=== PATIENT | female | born 1980 | race Hispanic/Latino ===

== ENCOUNTER 2021-11-01 18:53 | Emergency (ER) | payer MEDICARE ==
[~2021-11-01] VITALS: Ht 165.1 cm; Wt 127.9 kg
[2021-11-01 18:55] VITALS: BP 130/61
[2021-11-01] MEDS ORDERED: KETOROLAC 30MG VIAL (30MG/ML) IM ONE (19:30)
[2021-11-01] MEDS ORDERED: NAPR500T6 PO (21:12)
[2021-11-01] MEDS ORDERED: KETOROLAC 30MG VIAL (30MG/ML) ONE (21:26)
== END 2021-11-01 21:47 | disposition home or self-care (01) ==
LOC: EDH 18:53
DX: M25.561 Pain in right knee (principal); M79.89 Other specified soft tissue disorders; Z88.0 Allergy status to penicillin; Z79.899 Other long term (current) drug therapy; Z98.890 Other specified postprocedural states
CPT/HCPCS: 29505; 36415; 73562; 84702; 96372; 99284; J1885

== ENCOUNTER 2024-09-19 11:10 | Emergency (ER) | payer MEDICARE ==
[~2024-09-19] VITALS: Ht 165.1 cm; Wt 96.6 kg
[~2024-09-19 11:10] MED LIST: NAPR-1506 PO
[2024-09-19 12:46] LABS: BASOPHILS # (AUTO) 0.04 K/uL (0.00-0.20); BASOPHILS % (AUTO) 0.6 % (0.0-5.0); EOSINOPHILS # (AUTO) 0.26 K/uL (0.00-0.70); HEMATOCRIT 41.6 % (36-48); IMMATURE GRANULOCYTE ABSOLUTE 0.02 K/uL (0-1); LYMPHOCYTES # (AUTO) 1.8 K/uL (1.0-4.8); MEAN CORPUSCULAR HEMOGLOBIN 27.2 pg (27.0-33.0); MEAN CORPUSCULAR HGB CONC 32.5 g/dL (32.0-36.0); MEAN CORPUSCULAR VOLUME 83.9 fL (79-99); MONOCYTES # (AUTO) 0.3 K/uL (0.1-1.0); NEUTROPHILS # (AUTO) 4.1 K/uL (1.8-7.7); NEUTROPHILS % (AUTO) 63.1 % (40.0-77.0); PLATELET COUNT (AUTO) 220 K/uL (130-400); RED BLOOD CELL COUNT(AUTO) 4.96 MIL/uL (4.00-5.50); RED CELL DISTRIBUTION WIDTH 15.8 % (11.0-15.5); WHITE BLOOD COUNT (AUTO) 6.5 K/uL (4.8-10.8)
[2024-09-19 12:50] LABS: APPEARANCE,URINE CLEAR (CLEAR); BILIRUBIN,URINE NEGATIVE (NEGATIVE); COLOR,URINE LIGHT-YELLOW (YELLOW); GLUCOSE, URINE (UA) NEGATIVE (NEGATIVE); KETONES,URINE NEGATIVE (NEGATIVE); LEUKOCYTE ESTERASE ,URINE NEGATIVE Leu/uL (NEGATIVE); NITRATE,URINE NEGATIVE (NEGATIVE); OCCULT BLOOD,URINE SMALL (NEGATIVE); PH,URINE 5.5 (5.0-8.0); PROTEIN,URINE NEGATIVE (NEGATIVE); UROBILINOGEN,URINE 0.2 mg/dL (0.2-1.0)
[2024-09-19 12:57] LABS: INR <= 0.93 (0.85-1.15); PROTHROMBIN TIME 10.1 SEC (9.6-11.6)
[2024-09-19 12:58] LABS: PARTIAL THROMBOPLASTIN TIME 26.5 SEC (26.3-35.5)
[2024-09-19 13:00] LABS: ADD UA MICROSCOPIC YES
[2024-09-19 13:00] LABS: CREATININE 0.4 mg/dL (0.5-1.0); POTASSIUM 4.3 mmol/L (3.5-5.1)
[2024-09-19 13:01] LABS: MUCUS,URINE RARE LPF (None Seen); SQUAMOUS EPITHELIAL CELL,UR RARE /HPF (0-2); WBC,URINE 0-1 /HPF (0-1)
--- NOTE | 2024-09-19 14:22 | HMCIMG ---
US PELVIC NON-OB COMP REASON: dysfunctional uterine bleeding r/o uterine fibroids COMPARISON: None TECHNIQUE: Routine pelvic sonogram was performed. FINDINGS: Uterus is 8.2 x 4.6 x 4.9 cm. Endometrium is mildly prominent at 14 mm. There are no focal endometrial or myometrial masses. Ovaries appear small but otherwise unremarkable. Right ovary is 1.9 x 2.1 cm, left ovary is 2.1 x 2.1 cm. There are no adnexal masses. There is no free fluid in the cul-de-sac. IMPRESSION: 1. Normal pelvic sonogram.
--- NOTE | 2024-09-19 14:47 | ERN ---
General Chief Complaint: Vaginal Problems/Bleeding Stated Complaint: HEAVY VAGINAL BLEEDING, ABD CRMAPS Time Seen by MD: 11:29 Time Seen by Midlevel: 11:29 Source: patient History of Present Illness Initial Comments The patient is a 44-year-old female with a past medical history of anemia and recurrent urinary tract infections, and an ectopic in 2019 presenting to the emergency department with heavy vaginal bleeding with clots that started yesterday and progressively worsened today. She reports going through three tampons in the last hour. She also reports generalized body weakness and fatigue. Denies any chest pain, shortness of breath, or any other symptoms. Patient is unsure if she was but states she has been attempting to get for the last couple of weeks. Allergies: Coded Allergies: Penicillins (Unverified Allergy, Unknown, 11/01/21) Home Meds Active Scripts Naproxen (Naproxen) 500 Mg Tablet., 500 MG PO BIDPC, #15 TAB Prov:NANCYLYNETTE [employer] 11/01/21 Past Medical History Past Medical History: Anemia, UTI Past Surgical History: Other Surgical History Other: ECTOPIC IN 2019 Female( History) LMP: Aug 13, 2024 ROS Dictation CONSTITUTIONAL: Negative except for HPI HEAD/FACE: Negative except for HPI EENT: Negative except for HPI RESPIRATORY: Negative except for HPI GASTROINTESTINAL/ABDOMINAL: Negative except for HPI GENITOURINARY: Negative except for HPI MUSCULOSKELETAL: Negative except for HPI INTEGUMENTARY: Negative except for HPI NEUROLOGICAL/PSYCH: Negative except for HPI HEMATOLOGIC/LYMPHATIC: Negative except for HPI All Systems Negative, Except as noted above. 13 point review of systems assessed and all negative except for above. Physical Exam Physical Exam Dictation Vital Signs reviewed General Appearance: Alert, oriented x 3, no acute distress, well developed, nourished. Head and Face: non-traumatic. Eyes: PERRL, pink conjunctivas, eyelid no trauma, anterior chamber with arcus senilis. Ears: Pinnas intact and no signs of trauma or erythema ear canals clear and no discharge TM no erythema Nose: No discharge, no bleeding. Oropharynx: Mouth normal, tongue pink, pharynx clear,no erythema, tonsils no exudates, no abscesses noted, mucous membrane moist Neck: Supple, non-tender, no thyromegaly, no masses, no JVD, no bruits Breast:Deferred Chest:No tenderness, no crepitus, no paradoxical movement, no retractions Lungs:Clear, well-ventilated, symmetric, no rales, no wheezing, no rhonchi, no stridor, good breath sounds bilaterally Heart: Regular rate, regular rhythm, no murmur, no gallops Vascular: no peripheral edema, Abdomen: Soft, positive bowel sounds, nondistended, no guarding, nontender, no rebound, no masses no hepatomegaly, no splenomegaly, no Abreu's sign, no hernias. Rectal: Deferred Genital: Deferred Neurological: Normal speech, motor function intact, sensory function intact Musculoskeletal: Neck nontender, full range of motion, back nontender, full range of motion, Extremities: nontender, full range of motion Skin: Color pink, dry, no turgor, no rash, no lacerations, no abrasions, no contusions. Lymphatic: Deferred Results Laboratory and Microbiology Lab and Micro Result Laboratory Tests Test 09/19/24 12:19 09/19/24 12:38 Urine Color LIGHT-YELLOW (YELLOW) Urine Appearance CLEAR (CLEAR) Urine pH 5.5 (5.0-8.0) Urine Specific [place] 1.017 (1.001-1.031) Urine Protein NEGATIVE mg/dL (NEGATIVE) Urine Glucose (UA) NEGATIVE mg/dL (NEGATIVE) Urine Ketones NEGATIVE mg/dL (NEGATIVE) Urine Occult Blood SMALL (NEGATIVE) H Urine Nitrate NEGATIVE (NEGATIVE) Urine Bilirubin NEGATIVE mg/dL (NEGATIVE) Urine Urobilinogen 0.2 mg/dL (0.2-1.0) Urine Leukocyte Esterase NEGATIVE Miladys/uL Urine RBC 11-25 /HPF (0-1) H Urine WBC 0-1 /HPF (0-1) Urine Squamous Epithelial Cells RARE /HPF (0-2) Urine Bacteria None /HPF (None Seen) White Blood Count 6.5 K/uL (4.8-10.8) Red Blood Count 4.96 MIL/uL (4.00-5.50) Hemoglobin 13.5 g/dL (12.0-16.0) Hematocrit 41.6 % (36-48) Mean Corpuscular Volume 83.9 fL (79-99) Mean Corpuscular Hemoglobin 27.2 pg (27.0-33.0) Mean Corpuscular Hemoglobin Concent 32.5 g/dL (32.0-36.0) Red Cell Distribution Width 15.8 % (11.0-15.5) H Platelet Count 220 K/uL (130-400) Mean Platelet Volume 10.1 fL (7.5-10.5) Immature Granulocyte % (Auto) 0.3 % (0-1) Neutrophils (%) (Auto) 63.1 % (40.0-77.0) Lymphocytes (%) (Auto) 28.0 % (21.0-51.0) Monocytes (%) (Auto) 4.0 % (3.0-13.0) Eosinophils (%) (Auto) 4.0 % (0.0-8.0) Basophils (%) (Auto) 0.6 % (0.0-5.0) Neutrophils # (Auto) 4.1 K/uL (1.8-7.7) Lymphocytes # (Auto) 1.8 K/uL (1.0-4.8) Monocytes # (Auto) 0.3 K/uL (0.1-1.0) Eosinophils # (Auto) 0.26 K/uL (0.00-0.70) Basophils # (Auto) 0.04 K/uL (0.00-0.20) Absolute Immature Granulocyte (auto 0.02 K/uL (0-1) Nucleated Red Blood Cells 0.0 % (0.0-0.19) Prothrombin Time 10.1 SEC (9.6-11.6) Prothromb Time International Ratio <= 0.93 (0.85-1.15) Activated Partial Thromboplast Time 26.5 SEC (26.3-35.5) Sodium Level 142 mmol/L (136-145) Potassium Level 4.3 mmol/L (3.5-5.1) Chloride Level 107 mmol/L (101-111) Carbon Dioxide Level 26 mmol/L (21-32) Blood Urea Nitrogen 16 mg/dL (7-18) Creatinine 0.4 mg/dL (0.5-1.0) L Glomerular Filtration Rate Calc 126 mL/min (>90) Random Glucose 98 mg/dL (70-105) Total Calcium 9.0 mg/dL (8.5-10.1) Human Chorionic Gonadotropin, Quant 0 mIU/mL (0-5) Labs Reviewed?: Yes MDM MDM: The patient is a 44-year-old female with a past medical history of anemia and recurrent urinary tract infections, and an ectopic in 2019 presenting to the emergency department with heavy vaginal bleeding with clots that started yesterday and progressively worsened today. She reports going through three tampons in the last hour. She also reports generalized body weakness and fatigue. Denies any chest pain, shortness of breath, or any other symptoms. Patient is unsure if she was but states she has been attempting to get for the last couple of weeks. On physical examination the patient appears to be in no acute distress. Initial vital signs are remarkable for heart rate of 70 beats per minute. Blood pressure stable at 140 over 85. Pulse oximetry is 99% on room air. Plan was to obtain basic labs including hCG to rule out . Her CBC shows a normal white blood cell count at 6.5. Her hemoglobin is stable at 13.5. Platelets are normal at 220. No need for emergent transfusion at this time. Chemistries are unremarkable. HCG quant level was 0. Urinalysis shows small amount of occult blood but does not show any evidence of infection. No need for antibiotics at this time. A pelvic ultrasound was obtained to rule out uterine fibroids versus any other acute abnormality however her pelvic ultrasound is normal. At this time the patient is stable for discharge and will need to follow up outpatient with her OBGYN for further evaluation. Differential diagnosis: Ectopic , severe anemia requiring blood transfusion, electrolyte abnormality There are no social concerns with this patient. Prescription drug management Prescriptions will include: None Medical management and examination interpretation discussions were had by me with other qualified healthcare professionals as indicated for the patient's care. ED Course Orders Procedure Category Date Status Time Cbc With Differential LAB 09/19/24 Complete 12:07 Basic Metabolic Panel LAB 09/19/24 Complete 12:07 Pt And Ptt LAB 09/19/24 Complete 12:07 Urinalysis Profile LAB 09/19/24 Complete 12:07 Hcg,Quantitative LAB 09/19/24 Complete 12:07 Us Pelvic Non-Ob Comp US 09/19/24 Resulted 13:18 Vital Signs Date Time Temp Pulse Resp B/P (MAP) Pulse Ox O2 Delivery O2 Flow Rate FiO2 09/19/24 12:43 98.2 75 18 127/55 100 Room Air* 0 21 09/19/24 12:04 97.7 78 20 140/85 99 Room Air [facility] [address] [place] [address] IMAGING REPORT Signed PATIENT: REBECCA MCBRIDE MR#: [id number] : 1980 SEX: F AGE: 44 LOCATION: [facility] ORDER 18 STATUS: REG ER REPORT#: [id number] SERVICE 17 REASON: dysfunctional uterine bleeding r/o uterine fibroids ORDERING PHYSICIAN: MARCELO CARR PROCEDURE: PELVCOMP - US PELVIC NON-OB COMP US PELVIC NON-OB COMP REASON: dysfunctional uterine bleeding r/o uterine fibroids COMPARISON: None TECHNIQUE: Routine pelvic sonogram was performed. FINDINGS: Uterus is 8.2 x 4.6 x 4.9 cm. Endometrium is mildly prominent at 14 mm. There are no focal endometrial or myometrial masses. Ovaries appear small but otherwise unremarkable. Right ovary is 1.9 x 2.1 cm, left ovary is 2.1 x 2.1 cm. There are no adnexal masses. There is no free fluid in the cul-de-sac. IMPRESSION: 1. Normal pelvic sonogram. DICTATED BY: RENUKA CANTRELL MD DATE: 09/19/241417 ELECTRONICALLY SIGNED BY: RENUKA CANTRELL MD DATE: 09/19/241421 DX & DISP Disposition: Discharge Departure Impression: Primary Impression: Dysfunctional uterine bleeding Condition: Stable Additional Instructions: Your blood work today is unremarkable. Your hemoglobin level is normal at 13.5. Your urinalysis does not show any evidence of infection. Your test was negative. A pelvic ultrasound was performed which is normal. There was no evidence of uterine fibroids or any other abnormalities. You will need to follow up with an OBGYN for further evaluation. Referrals: MELISSA GUADARRAMA (PCP) Time of Disposition: 14:30 I have reviewed the case, and I agree with, Diagnosis and Plan I performed the substantive portion of the visit. I have reviewed and personally made and approve the management plan that is documented in the note by myself or the ROSEMARIE. I acknowledge for responsibility for the patient's management plan. MARCELO CARR Sep 19, 2024 14:47
[2024-09-19 14:49] VITALS: BP 134/73; PULSE 73; RESP 16; TEMP 98; O2SAT 98
== END 2024-09-19 15:30 | disposition home or self-care (01) ==
LOC: EDH 11:10
DX: N93.8 Other specified abnormal uterine and vaginal bleeding (principal); R10.2 Pelvic and perineal pain; Z87.59 Personal history of other complications of pregnancy, childbirth and the puerperium; Z88.0 Allergy status to penicillin
CPT/HCPCS: 36415; 76856; 80048; 81001; 84702; 85025; 85610; 85730; 99284